=== PATIENT | male | born 1945 | race Caucasian/White ===

== ENCOUNTER 2021-09-25 09:24 | Outpatient (CLI) | payer MEDICARE ==
[2021-09-26 00:45] LABS: SARS-CoV-2 PCR by NAA Not Detected (NotDetected)
== END 2021-09-25 09:25 | disposition home or self-care (01) ==
LOC: LABBT 09:24
PROVIDERS: ATTEND Orthopaedic Surgery
DX: Z01.818 Encounter for other preprocedural examination (principal); M12.811 Other specific arthropathies, not elsewhere classified, right shoulder; Z20.822 Contact with and (suspected) exposure to COVID-19
CPT/HCPCS: 93005; U0003; U0005; 93010

== ENCOUNTER 2021-09-27 05:30 | Observation (INO) | payer MEDICARE ==
[2021-09-24 13:08] VITALS: BMI 24.5
[2021-09-27] MEDS ORDERED: Tranexamic Acid 1,000 MG/10 ML VIAL ONE (06:24)
[2021-09-27] MEDS ORDERED: Sodium Chloride 0.9% 100 ML ONE (06:24)
[2021-09-27] MEDS ORDERED: Vancomycin 1 GM/200 ML BAG ONE (06:24)
[2021-09-27] MEDS ORDERED: Midazolam HCl 2 mg/2 ml Vial ONE (07:02)
[2021-09-27] MEDS ORDERED: Lidocaine 1% MPF 2 ML VIAL ONE (07:02)
[2021-09-27] MEDS ORDERED: ceFAZolin (BATCH) 2 GM/100 ML BAG ONE (07:10)
[2021-09-27] MEDS ORDERED: ePHEDrine 50 MG/ML VIAL ONE (07:18)
[2021-09-27] MEDS ORDERED: Rocuronium Bromide 10 MG/ML (10ML VIAL) ONE (07:18)
[2021-09-27] MEDS ORDERED: Dexamethasone 20 MG/5 ML VIAL ONE (07:18)
[2021-09-27] MEDS ORDERED: Glycopyrrolate 0.2 MG/ML 5 ML SYRINGE ONE (07:18)
[2021-09-27] MEDS ORDERED: Ondansetron PF 4 MG/2 ML Vial ONE (07:18)
[2021-09-27] MEDS ORDERED: PROPOFOL 200 MG/20 ML VIAL ONE (07:18)
[2021-09-27] MEDS ORDERED: Ropivacaine 0.5% HCl/PF (150 MG/30 ML VIAL) ONE (07:18)
[2021-09-27] MEDS ORDERED: Fentanyl 100 MCG/2 ML VIAL ONE (07:34)
[2021-09-27] MEDS ORDERED: HYDROcodone/Acetaminophen 7.5/325 mg Tablet PO PRN ×4 (07:49→08:32)
[2021-09-27] MEDS ORDERED: Ondansetron PF 4 MG/2 ML Vial IVP PRN (08:30)
[2021-09-27] MEDS ORDERED: Ropivacaine 0.2% 550 ML 550 ML NERVE BLCK SCH (08:30)
[2021-09-27] MEDS ORDERED: traMADol HCl 50 MG TAB PO PRN ×2 (08:30)
[2021-09-27] MEDS ORDERED: Zolpidem Tartrate 5 MG TAB PO PRN (08:30)
[2021-09-27] MEDS ORDERED: Promethazine HCl 25 MG/ML VIAL IM PRN (08:30)
[2021-09-27] MEDS ORDERED: Fentanyl 100 MCG/2 ML VIAL SLOW IVP PRN (08:34)
[2021-09-27] MEDS ORDERED: EXENATIDE MICROSPHERES 2 MG/0.85 ML SC SCH (08:45)
[2021-09-27] MEDS ORDERED: [UNRECOGNIZED DRUG - OTHER] SC SCH (08:45)
[2021-09-27] MEDS ORDERED: Aspirin Chewable 81 MG TAB PO SCH (09:00)
[2021-09-27] MEDS: Glimepiride 4 MG TAB PO SCH (12:38)
[2021-09-27] MEDS: metFORMIN 500 MG TAB PO SCH ×2 (12:39→17:16)
[2021-09-27] MEDS: Sodium Chloride 0.9% 1,000 ML IV SCH ×2 (12:39→19:57)
[2021-09-27] MEDS: Empagliflozin 25 MG TAB PO SCH (12:39)
[2021-09-27] MEDS: Pioglitazone HCl 45 MG TAB PO SCH (12:39)
[2021-09-27] MEDS: Ketorolac Tromethamine 30 MG/ML VIAL IVP SCH ×3 (12:44→23:06)
[2021-09-27] MEDS: CEFAZOLIN 2 GM, IV Admixture Fee-Chemo 1 UNITS in Sodium Chloride 0.9% 100 ML IVPB SCH ×2 (15:18→23:07)
[2021-09-27] MEDS ORDERED: Atorvastatin Calcium 10 MG TAB PO SCH (21:00)
[2021-09-28] MEDS: Ketorolac Tromethamine 30 MG/ML VIAL IVP SCH (05:10)
[2021-09-28] MEDS ORDERED: Levothyroxine Sodium 50 MCG TAB PO SCH (06:00)
[2021-09-28 07:50] VITALS: BP 145/77; TEMP 97.6
[2021-09-28] MEDS: Empagliflozin 25 MG TAB PO SCH (08:01)
[2021-09-28] MEDS: metFORMIN 500 MG TAB PO SCH (08:02)
[2021-09-28] MEDS: Pioglitazone HCl 45 MG TAB PO SCH (08:02)
[2021-09-28] MEDS: Glimepiride 4 MG TAB PO SCH (08:02)
[2021-09-28] MEDS ORDERED: Aspirin 81 mg Enteric Coated Tablet PO SCH (09:00)
[2021-09-28] MEDS ORDERED: Losartan 25 MG TAB PO SCH (09:00)
== END 2021-09-28 13:00 | disposition home or self-care (01) ==
LOC: SDC 05:30 → SJJU 07:51
PROVIDERS: ADMIT Orthopaedic Surgery; ATTEND Orthopaedic Surgery
PROC: 0RRJ00Z Replacement of Right Shoulder Joint with Reverse Ball and Socket Synthetic Substitute, Open Approach (ICD-10-PCS; principal; 2021-09-27)
PROC: 3E0T3BZ Introduction of Anesthetic Agent into Peripheral Nerves and Plexi, Percutaneous Approach (ICD-10-PCS; 2021-09-27)
DX: M12.811 Other specific arthropathies, not elsewhere classified, right shoulder (principal); M75.21 Bicipital tendinitis, right shoulder; E11.9 Type 2 diabetes mellitus without complications; E78.5 Hyperlipidemia, unspecified; I10 Essential (primary) hypertension; I48.91 Unspecified atrial fibrillation; E03.9 Hypothyroidism, unspecified; M19.90 Unspecified osteoarthritis, unspecified site; Z79.82 Long term (current) use of aspirin; Z79.84 Long term (current) use of oral hypoglycemic drugs; Z79.899 Other long term (current) drug therapy
CPT/HCPCS: 23472; 64416; 97110; 97116; 97139 ×3; 97530; 97535; A4306; C1713 ×5; C1776 ×3; 96365; 96375; 96376; G0378; J0690; J1100; J1885; J2250; J2405; J2704; J2795; J3010; J3370; J3490